=== PATIENT | male | born 1980 | race Caucasian/White ===

== ENCOUNTER 2017-08-14 05:54 | Emergency (ER) | payer SELFPAY ==
[~2017-08-14] VITALS: Ht 175.2 cm; Wt 81.6 kg
[~2017-08-14 05:54] MED LIST: 'carisoprodol350 MG PO; AMOXICILLIN500 MG PO; AMOXIL500 MG PO; ANTIBIOTIC O500 U/GM TP; ATIVAN0.5 MG PO; CIPRO500 MG PO; CIPROFLOXACIN500 MG PO; CLARITIN10 MG PO; FLAGYL500 MG PO; GABAPENTIN400 MG PO; MEDROL DOSEPAK4 MG PO; METRONIDAZOLE500 MG PO; NEURONTIN300 MG PO; NORCO 325 MG-51 TAB PO; OXYCODONE-ACETAMINOP; PERCOCET 325 MG1 TA7; PERCOCET 325 MG1 TAB PO; PREDNISONE20 MG PO; SOMA; TORADOL10 MG PO; VALIUM2 MG PO; VICODIN 5/500 505 MG PO; VICODIN ES 7501 TA1 PO; VICODIN HP 6601 TA1 PO; Vicodin 5/500 505 MG PO; ZOLOFT100 MG PO
[2017-08-14] MEDS ORDERED: NORCO 5-325 TA1 EACH PO (06:24)
[2017-08-14] MEDS ORDERED: CLINDAMYCIN HC300 MG PO (06:24)
== END 2017-08-14 06:53 | disposition home or self-care (01) ==
LOC: ED 05:54
DX: K04.01 Reversible pulpitis (principal); K02.9 Dental caries, unspecified

== ENCOUNTER 2017-11-30 20:16 | Emergency (ER) | payer OTHER ==
[~2017-11-30] VITALS: Ht 175.2 cm; Wt 81.6 kg
[~2017-11-30 20:16] MED LIST changes: +CLINDAMYCIN HC300 MG PO; +NORCO 5-325 TA1 EACH PO
== END 2017-11-30 20:53 | disposition home or self-care (01) ==
LOC: ED 20:16
DX: S01.511A Laceration without foreign body of lip, initial encounter (principal); F17.200 Nicotine dependence, unspecified, uncomplicated; Z79.899 Other long term (current) drug therapy; W45.8XXA Other foreign body or object entering through skin, initial encounter; Y93.89 Activity, other specified; Y92.89 Other specified places as the place of occurrence of the external cause; Y99.8 Other external cause status

== ENCOUNTER 2018-08-13 14:16 | Emergency (ER) | payer OTHER ==
[~2018-08-13] VITALS: Ht 175.2 cm; Wt 79.4 kg
[2018-08-13] MEDS ORDERED: ZITHROMAX250 MG PO (17:00)
[2018-08-13] MEDS ORDERED: DELTASONE20 M1 PO (17:00)
== END 2018-08-13 17:04 | disposition home or self-care (01) ==
LOC: ED 14:16
DX: J40 Bronchitis, not specified as acute or chronic (principal); F17.200 Nicotine dependence, unspecified, uncomplicated; Z79.899 Other long term (current) drug therapy

== ENCOUNTER 2018-11-17 07:47 | Emergency (ER) | payer OTHER ==
[~2018-11-17] VITALS: Ht 175.2 cm; Wt 79.4 kg
[~2018-11-17 07:47] MED LIST changes: +DELTASONE20 M1 PO; +ZITHROMAX250 MG PO
[2018-11-17 08:15] LABS: BASO # 0.1 10*3/uL (0.0-0.1); BASO % 0.6 % (0.0-1.0); EOS % 0.1 % (1.0-4.0); HEMATOCRIT 45.2 % (42.0-52.0); HEMOGLOBIN 16.5 g/dl (14.0-18.0); LYMPH # 0.5 10*3/uL (1.3-4.4); LYMPH % 5.3 % (27.0-41.0); MEAN CELL VOLUME 86.3 fl (80.0-94.0); MEAN CORPUSCULAR HGB 31.5 pg (27.0-31.0); MEAN CORPUSCULAR HGB CONC 36.5 g/dl (33.0-37.0); MEAN PLATELET VOLUME 9.1 fl (9.6-12.3); MONO # 0.9 10*3/uL (0.1-1.0); MONO % 9.5 % (3.0-9.0); NEUT # 7.9 10*3/uL (2.3-7.9); NEUT % 84.1 % (47.0-73.0); PLATELET COUNT AUTOMATED 235 10*3/uL (130-400); RED BLOOD COUNT 5.24 10*6/uL (4.50-5.90); RED CELL DISTRI WIDTH 12.1 % (0-14.5); WHITE BLOOD COUNT 9.4 10*3/uL (4.8-10.8)
[2018-11-17 08:39] LABS: ALBUMIN 4.1 gm/dl (3.1-4.5); ALKALINE PHOSPHATASE 77 U/L (45-117); BUN 13 mg/dl (7-24); CHLORIDE 105 mmol/L (98-107); CREATININE 0.81 mg/dL (0.70-1.30); POTASSIUM 3.7 mmol/L (3.5-5.1); SGOT/AST 18 IU/L (3-35); SGPT/ALT 23 U/L (12-78); SODIUM 135 mmol/L (136-145); TOTAL PROTEIN 7.9 gm/dL (6.4-8.2)
[2018-11-17] MEDS ORDERED: ZOFRAN4 MG PO (09:13)
[2018-11-17] MEDS ORDERED: IMODIUM A-D2 M2 PO (09:16)
[2018-11-17] MEDS ORDERED: TAMIFLU 75MG CA75 MG PO (09:16)
[2018-11-19] MEDS ORDERED: PREDNISONE50 MG PO (05:06)
[2018-11-19] MEDS ORDERED: TESSALON PERLE100 MG PO (05:06)
== END 2018-11-17 09:17 | disposition home or self-care (01) ==
LOC: ED 07:47
PROVIDERS: Student in an Organized Health Care Education/Training Program
DX: J10.1 Influenza due to other identified influenza virus with other respiratory manifestations (principal); F17.200 Nicotine dependence, unspecified, uncomplicated; K52.9 Noninfective gastroenteritis and colitis, unspecified; Z79.2 Long term (current) use of antibiotics; Z79.899 Other long term (current) drug therapy

== ENCOUNTER 2019-02-23 15:17 | Emergency (ER) | payer OTHER ==
[~2019-02-23] VITALS: Ht 175.2 cm; Wt 81.6 kg
[~2019-02-23 15:17] MED LIST changes: +IMODIUM A-D2 M2 PO; +PREDNISONE50 MG PO; +TAMIFLU 75MG CA75 MG PO; +TESSALON PERLE100 MG PO; +ZOFRAN4 MG PO
[2019-02-23 15:32] LABS: BASO % 0.5 % (0.0-1.0); EOS % 0.1 % (1.0-4.0); HEMATOCRIT 49.1 % (42.0-52.0); HEMOGLOBIN 17.3 g/dl (14.0-18.0); LYMPH # 1.3 10*3/uL (1.3-4.4); LYMPH % 14.3 % (27.0-41.0); MEAN CELL VOLUME 87.8 fl (80.0-94.0); MEAN CORPUSCULAR HGB 30.9 pg (27.0-31.0); MEAN CORPUSCULAR HGB CONC 35.2 g/dl (33.0-37.0); MEAN PLATELET VOLUME 9.3 fl (9.6-12.3); MONO # 0.4 10*3/uL (0.1-1.0); MONO % 4.2 % (3.0-9.0); NEUT # 7.1 10*3/uL (2.3-7.9); NEUT % 80.7 % (47.0-73.0); PLATELET COUNT AUTOMATED 318 10*3/uL (130-400); RED BLOOD COUNT 5.59 10*6/uL (4.50-5.90); RED CELL DISTRI WIDTH 12.2 % (0-14.5); WHITE BLOOD COUNT 8.8 10*3/uL (4.8-10.8)
[2019-02-23 15:48] LABS: ALBUMIN 4.6 gm/dl (3.1-4.5); ALKALINE PHOSPHATASE 85 U/L (45-117); BUN 8 mg/dl (7-24); CHLORIDE 109 mmol/L (98-107); CREATININE 0.86 mg/dL (0.70-1.30); LIPASE 50 U/L (73-393); SGOT/AST 12 IU/L (3-35); SGPT/ALT 23 U/L (12-78); SODIUM 141 mmol/L (136-145); TOTAL PROTEIN 8.3 gm/dL (6.4-8.2)
[2019-02-23 17:00] LABS: BILIRUBIN 1+ (NEGATIVE); BLOOD NEGATIVE (NEGATIVE); CLARITY CLEAR (CLEAR); COLOR YELLOW (YELLOW); GLUCOSE NEGATIVE (NEGATIVE); KETONE TRACE (NEGATIVE); LEUKO ESTERASE TRACE (NEGATIVE); NITRITE NEGATIVE (NEGATIVE)
[2019-02-23 17:06] LABS: BACTERIA 1+; EPITHELIAL CELLS 0-2; MUCOUS 2+
[2019-02-23 17:08] LABS: URINE AMPHETAMINES < 1000 (1000ng/ml); URINE BARBITURATES < 200 (200ng/ml); URINE BENZODIAZEPINES < 200 (200ng/ml); URINE CANNABINOIDS (THC) > 50 (50ng/ml); URINE COCAINE < 300 (300ng/ml); URINE METHADONE < 300 (300ng/ml); URINE OPIATES < 300 (300ng/ml)
[2019-02-23] MEDS ORDERED: ZOFRAN4 MG PO (17:12)
[2019-02-23 17:13] LABS: URINE PHENCYCLIDINE < 25 (25ng/ml)
== END 2019-02-23 17:25 | disposition home or self-care (01) ==
LOC: ED 15:17
PROVIDERS: Physician Assistant
DX: R11.2 Nausea with vomiting, unspecified (principal); R55 Syncope and collapse; R19.7 Diarrhea, unspecified; R10.84 Generalized abdominal pain; F17.200 Nicotine dependence, unspecified, uncomplicated; Z79.899 Other long term (current) drug therapy

== ENCOUNTER 2019-09-11 18:42 | Emergency (ER) | payer OTHER ==
[~2019-09-11] VITALS: Ht 175.2 cm; Wt 79.4 kg
[2019-09-11 19:18] LABS: BASO # 0.1 10*3/uL (0.0-0.1); BASO % 0.7 % (0.0-1.0); EOS # 0.1 10*3/uL (0.0-0.4); HEMATOCRIT 43.5 % (42.0-52.0); HEMOGLOBIN 15.2 g/dl (14.0-18.0); LYMPH # 1.8 10*3/uL (1.3-4.4); LYMPH % 21.1 % (27.0-41.0); MEAN CELL VOLUME 89.9 fl (80.0-94.0); MEAN CORPUSCULAR HGB 31.4 pg (27.0-31.0); MEAN CORPUSCULAR HGB CONC 34.9 g/dl (33.0-37.0); MEAN PLATELET VOLUME 9.2 fl (9.6-12.3); MONO # 0.9 10*3/uL (0.1-1.0); MONO % 10.3 % (3.0-9.0); NEUT # 5.6 10*3/uL (2.3-7.9); NEUT % 66.5 % (47.0-73.0); PLATELET COUNT AUTOMATED 308 10*3/uL (130-400); RED BLOOD COUNT 4.84 10*6/uL (4.50-5.90); RED CELL DISTRI WIDTH 11.9 % (0-14.5); WHITE BLOOD COUNT 8.4 10*3/uL (4.8-10.8)
[2019-09-11 19:29] LABS: ACT PARTIAL THROMBO TIME 28.8 SECONDS (20.0-32.1); INTERNATIONAL NORM RATIO 0.9 (2.0-3.5)
[2019-09-11 19:36] LABS: ALKALINE PHOSPHATASE 73 U/L (45-117); BUN 9 mg/dl (7-24); CHLORIDE 107 mmol/L (98-107); POTASSIUM 4.1 mmol/L (3.5-5.1); SGOT/AST 15 IU/L (3-35); SGPT/ALT 22 U/L (12-78); SODIUM 139 mmol/L (136-145); TOTAL PROTEIN 7.2 gm/dL (6.4-8.2)
[2019-09-11 19:37] LABS: TROPONIN I < 0.015 ng/ml (<0.045)
== END 2019-09-11 20:06 | disposition short-term general hospital (02) ==
LOC: ED 18:42
PROVIDERS: Emergency Medicine
DX: I21.3 ST elevation (STEMI) myocardial infarction of unspecified site (principal); F17.200 Nicotine dependence, unspecified, uncomplicated; Z79.899 Other long term (current) drug therapy

== ENCOUNTER 2020-02-10 17:52 | Emergency (ER) | payer OTHER ==
[~2020-02-10] VITALS: Ht 175.2 cm; Wt 74.8 kg
[2020-02-10] MEDS ORDERED: CLINDAMYCIN HC300 MG PO (18:18)
[2020-02-10] MEDS ORDERED: IBU600 M1 PO (18:18)
[2020-02-16] MEDS ORDERED: FLAGYL500 MG PO (14:42)
[2020-02-16] MEDS ORDERED: IBU800 M1 PO (14:42)
[2020-02-16] MEDS ORDERED: AMOXICILLIN500 M3 PO (14:42)
== END 2020-02-10 18:36 | disposition home or self-care (01) ==
LOC: ED 17:52
DX: K08.89 Other specified disorders of teeth and supporting structures (principal); F41.9 Anxiety disorder, unspecified; F17.200 Nicotine dependence, unspecified, uncomplicated; Z79.899 Other long term (current) drug therapy

== ENCOUNTER 2020-02-14 17:14 | Emergency (ER) | payer OTHER ==
[~2020-02-14] VITALS: Ht 175.2 cm; Wt 72.6 kg
[~2020-02-14 17:14] MED LIST changes: +IBU600 M1 PO
[2020-02-14] MEDS ORDERED: AUGMENTIN 875-875 MG PO (17:57)
[2020-02-15] MEDS ORDERED: GABAPENTIN800 MG PO (22:30)
[2020-02-16] MEDS ORDERED: FLAGYL500 MG PO (14:42)
[2020-02-16] MEDS ORDERED: AMOXICILLIN500 M3 PO (14:42)
[2020-02-16] MEDS ORDERED: IBU800 M1 PO (14:42)
== END 2020-02-14 18:03 | disposition home or self-care (01) ==
LOC: ED 17:14
DX: K04.7 Periapical abscess without sinus (principal); K08.89 Other specified disorders of teeth and supporting structures; F41.9 Anxiety disorder, unspecified; Z79.899 Other long term (current) drug therapy

== ENCOUNTER 2020-02-15 14:02 | Emergency (ER) | payer OTHER ==
[~2020-02-15] VITALS: Ht 175.2 cm; Wt 74.8 kg
[~2020-02-15 14:02] MED LIST changes: +AUGMENTIN 875-875 MG PO
[2020-02-15 15:09] LABS: BASO % 0.4 % (0.0-1.0); EOS # 0.1 10*3/uL (0.0-0.4); EOS % 0.5 % (1.0-4.0); HEMATOCRIT 41.4 % (42.0-52.0); LYMPH # 1.7 10*3/uL (1.3-4.4); LYMPH % 16.3 % (27.0-41.0); MEAN CELL VOLUME 88.1 fl (80.0-94.0); MEAN CORPUSCULAR HGB 31.1 pg (27.0-31.0); MEAN CORPUSCULAR HGB CONC 35.3 g/dl (33.0-37.0); MONO # 0.8 10*3/uL (0.1-1.0); MONO % 7.7 % (3.0-9.0); NEUT # 7.6 10*3/uL (2.3-7.9); NEUT % 74.6 % (47.0-73.0); PLATELET COUNT AUTOMATED 317 10*3/uL (130-400); WHITE BLOOD COUNT 10.2 10*3/uL (4.8-10.8)
[2020-02-15 15:41] LABS: ALBUMIN 3.8 gm/dl (3.1-4.5); ALKALINE PHOSPHATASE 71 U/L (45-117); BUN 12 mg/dl (7-24); CHLORIDE 104 mmol/L (98-107); CREATININE 0.59 mg/dL (0.70-1.30); POTASSIUM 3.8 mmol/L (3.5-5.1); SGOT/AST 8 IU/L (3-35); SGPT/ALT 18 U/L (12-78); SODIUM 137 mmol/L (136-145); TOTAL PROTEIN 7.7 gm/dL (6.4-8.2)
[2020-02-15] MEDS ORDERED: GABAPENTIN800 MG PO (22:30)
[2020-02-16] MEDS ORDERED: FLAGYL500 MG PO (14:42)
[2020-02-16] MEDS ORDERED: IBU800 M1 PO (14:42)
[2020-02-16] MEDS ORDERED: AMOXICILLIN500 M3 PO (14:42)
== END 2020-02-15 17:24 | disposition left against medical advice (07) ==
LOC: ED 14:02
PROVIDERS: Physician Assistant
DX: K08.89 Other specified disorders of teeth and supporting structures (principal); F41.9 Anxiety disorder, unspecified

== ENCOUNTER 2021-04-12 20:14 | Emergency (ER) | payer OTHER ==
[~2021-04-12] VITALS: Wt 69.9 kg
[~2021-04-12 20:14] MED LIST changes: +AMOXICILLIN500 M3 PO; +GABAPENTIN800 MG PO; +IBU800 M1 PO
== END 2021-04-12 22:50 | disposition home or self-care (01) ==
LOC: ED 20:14
DX: T63.441A Toxic effect of venom of bees, accidental (unintentional), initial encounter (principal); L53.0 Toxic erythema; F17.200 Nicotine dependence, unspecified, uncomplicated; Z79.2 Long term (current) use of antibiotics; Z79.899 Other long term (current) drug therapy; Z98.890 Other specified postprocedural states; Z98.61 Coronary angioplasty status; Y92.89 Other specified places as the place of occurrence of the external cause

== ENCOUNTER 2021-06-16 09:21 | Emergency (ER) | payer OTHER ==
[~2021-06-16] VITALS: Ht 175.2 cm; Wt 70.3 kg
== END 2021-06-16 13:33 | disposition left against medical advice (07) ==
LOC: ED 09:21
DX: S49.91XA Unspecified injury of right shoulder and upper arm, initial encounter (principal); F17.200 Nicotine dependence, unspecified, uncomplicated; Z79.2 Long term (current) use of antibiotics; Z79.899 Other long term (current) drug therapy; Z98.890 Other specified postprocedural states; X58.XXXA Exposure to other specified factors, initial encounter; Y93.89 Activity, other specified; Y92.89 Other specified places as the place of occurrence of the external cause; Y99.8 Other external cause status

== ENCOUNTER → 2021-10-07 | Outpatient (CLI) | payer OTHER ==
[2021-10-07 11:19] LABS: BASO # 0.1 10*3/uL (0.0-0.1); BASO % 0.7 % (0.0-1.0); EOS # 0.1 10*3/uL (0.0-0.4); EOS % 1.6 % (1.0-4.0); HEMATOCRIT 45.8 % (42.0-52.0); LYMPH # 2.3 10*3/uL (1.3-4.4); LYMPH % 26.1 % (27.0-41.0); MEAN CELL VOLUME 89.8 fl (80.0-94.0); MEAN CORPUSCULAR HGB 31.6 pg (27.0-31.0); MEAN CORPUSCULAR HGB CONC 35.2 g/dl (33.0-37.0); MEAN PLATELET VOLUME 8.6 fl (9.6-12.3); MONO # 0.8 10*3/uL (0.1-1.0); MONO % 8.7 % (3.0-9.0); NEUT # 5.4 10*3/uL (2.3-7.9); NEUT % 62.3 % (47.0-73.0); PLATELET COUNT AUTOMATED 308 10*3/uL (130-400); RETICULOCYTE % 1.26 % (0.50-2.50); WHITE BLOOD COUNT 8.7 10*3/uL (4.8-10.8)
[2021-10-07 11:37] LABS: ALBUMIN 3.9 gm/dl (3.1-4.5); ALKALINE PHOSPHATASE 69 U/L (45-117); BUN 10 mg/dl (7-24); CHLORIDE 105 mmol/L (98-107); CHOLESTEROL 166 mg/dL (<200); CREATININE 0.83 mg/dL (0.70-1.30); GAMMA GLUTAMYL TRANSPEPTIDASE 36 U/L (15-85); IRON 77 ug/dL (65-175); LDL CHOLESTEROL 90 mg/dL (9-159); POTASSIUM 4.3 mmol/L (3.5-5.1); SGOT/AST 12 IU/L (3-35); SGPT/ALT 20 U/L (12-78); SODIUM 136 mmol/L (136-145); TOTAL IRON BINDING CAPACITY 386 ug/dl (250-450); TOTAL PROTEIN 7.4 gm/dL (6.4-8.2); TRIGLYCERIDES 128 mg/dl (<150)
[2021-10-07 11:44] LABS: THYROID STIM HORMONE (HS) 0.256 uIU/ml (0.358-4.75)
[2021-10-07 13:11] LABS: VITAMIN D, 25-HYDROXY 19.7 ng/mL (30-100)
[2021-10-07 13:12] LABS: FERRITIN 82.5 ng/mL (22.0-322.0)
== END | disposition home or self-care (01) ==
LOC: LAB 10:59
PROVIDERS: ATTEND Family Medicine
DX: J98.11 Atelectasis (principal); R74.8 Abnormal levels of other serum enzymes; R53.83 Other fatigue; R79.89 Other specified abnormal findings of blood chemistry; E78.5 Hyperlipidemia, unspecified; E55.9 Vitamin D deficiency, unspecified

== ENCOUNTER 2021-11-12 10:03 | Emergency (ER) | payer OTHER ==
[~2021-11-12] VITALS: Ht 175.2 cm; Wt 71.7 kg
[2021-11-12] MEDS ORDERED: TYLENOL325 M1 PO (11:24)
[2021-11-12] MEDS ORDERED: NAPROXEN250 MG PO (11:24)
[2021-11-12] MEDS ORDERED: PENICILLIN-VK500 MG PO (11:24)
== END 2021-11-12 11:38 | disposition home or self-care (01) ==
LOC: ED 10:03
DX: K02.9 Dental caries, unspecified (principal); F17.200 Nicotine dependence, unspecified, uncomplicated

== ENCOUNTER 2021-12-17 10:51 | Emergency (ER) | payer OTHER ==
[~2021-12-17] VITALS: Ht 175.2 cm; Wt 68.0 kg
[2021-12-17 11:29] LABS: BASO # 0.1 10*3/uL (0.0-0.1); BASO % 0.8 % (0.0-1.0); EOS # 0.1 10*3/uL (0.0-0.4); EOS % 1.4 % (1.0-4.0); HEMATOCRIT 45.9 % (42.0-52.0); LYMPH # 1.8 10*3/uL (1.3-4.4); LYMPH % 25.3 % (27.0-41.0); MEAN CELL VOLUME 89.6 fl (80.0-94.0); MEAN CORPUSCULAR HGB 31.1 pg (27.0-31.0); MEAN CORPUSCULAR HGB CONC 34.6 g/dl (33.0-37.0); MEAN PLATELET VOLUME 8.6 fl (9.6-12.3); MONO # 0.5 10*3/uL (0.1-1.0); MONO % 6.7 % (3.0-9.0); NEUT # 4.7 10*3/uL (2.3-7.9); NEUT % 65.5 % (47.0-73.0); PLATELET COUNT AUTOMATED 261 10*3/uL (130-400); RED BLOOD COUNT 5.12 10*6/uL (4.50-5.90); RED CELL DISTRI WIDTH 12.2 % (0-14.5); WHITE BLOOD COUNT 7.2 10*3/uL (4.8-10.8)
[2021-12-17 11:41] LABS: ACT PARTIAL THROMBO TIME 30.1 SECONDS (20.0-32.1)
[2021-12-17 11:48] LABS: ALKALINE PHOSPHATASE 54 U/L (45-117); BUN 11 mg/dl (7-24); CHLORIDE 107 mmol/L (98-107); CREATININE 0.78 mg/dL (0.70-1.30); POTASSIUM 4.7 mmol/L (3.5-5.1); SGOT/AST 15 IU/L (3-35); SGPT/ALT 22 U/L (12-78); SODIUM 138 mmol/L (136-145); TOTAL PROTEIN 7.2 gm/dL (6.4-8.2)
== END 2021-12-17 14:05 | disposition home or self-care (01) ==
LOC: ED 10:51
PROVIDERS: Emergency Medicine
DX: R07.89 Other chest pain (principal); R05.9 Cough, unspecified; Z87.891 Personal history of nicotine dependence

== ENCOUNTER → 2021-12-17 | Outpatient (CLI) | payer OTHER ==
[~2021-12-17] MED LIST changes: +NAPROXEN250 MG PO; +PENICILLIN-VK500 MG PO; +TYLENOL325 M1 PO
[2021-12-17 10:51] LABS: BASO # 0.1 10*3/uL (0.0-0.1); BASO % 1.1 % (0.0-1.0); EOS # 0.1 10*3/uL (0.0-0.4); EOS % 1.1 % (1.0-4.0); HEMATOCRIT 44.7 % (42.0-52.0); MEAN CELL VOLUME 88.5 fl (80.0-94.0); MEAN CORPUSCULAR HGB 31.1 pg (27.0-31.0); MEAN CORPUSCULAR HGB CONC 35.1 g/dl (33.0-37.0); MEAN PLATELET VOLUME 8.7 fl (9.6-12.3); MONO # 0.5 10*3/uL (0.1-1.0); NEUT # 4.6 10*3/uL (2.3-7.9); NEUT % 63.3 % (47.0-73.0); PLATELET COUNT AUTOMATED 265 10*3/uL (130-400); RED BLOOD COUNT 5.05 10*6/uL (4.50-5.90); RED CELL DISTRI WIDTH 12.2 % (0-14.5); RETICULOCYTE % 1.08 % (0.50-2.50); WHITE BLOOD COUNT 7.3 10*3/uL (4.8-10.8)
[2021-12-17 11:10] LABS: BUN 12 mg/dl (7-24); CHLORIDE 108 mmol/L (98-107); CHOLESTEROL 168 mg/dL (<200); CREATININE 0.73 mg/dL (0.70-1.30); GAMMA GLUTAMYL TRANSPEPTIDASE 33 U/L (15-85); IRON 97 ug/dL (65-175); POTASSIUM 4.3 mmol/L (3.5-5.1); SGOT/AST 12 IU/L (3-35); SGPT/ALT 18 U/L (12-78); SODIUM 139 mmol/L (136-145); TOTAL PROTEIN 7.2 gm/dL (6.4-8.2); TRIGLYCERIDES 45 mg/dl (<150)
[2021-12-17 11:19] LABS: ALKALINE PHOSPHATASE 55 U/L (45-117); LDL CHOLESTEROL 113 mg/dL (9-159); T3 UPTAKE 34 % (31-39); THYROID STIM HORMONE (HS) 0.227 uIU/ml (0.358-4.75); TOTAL IRON BINDING CAPACITY 384 ug/dl (250-450)
== END | disposition home or self-care (01) ==
LOC: LAB 10:27
PROVIDERS: ATTEND Family Medicine
DX: R79.89 Other specified abnormal findings of blood chemistry (principal); R53.83 Other fatigue

== ENCOUNTER 2022-01-12 21:18 | Emergency (ER) | payer OTHER ==
[~2022-01-12] VITALS: Ht 175.2 cm; Wt 68.0 kg
[2022-01-12] MEDS ORDERED: OMNICEF300 MG PO (21:25)
[2022-01-12] MEDS ORDERED: PENICILLIN VK500 MG PO (21:36)
== END 2022-01-12 21:40 | disposition home or self-care (01) ==
LOC: ED 21:18
DX: K02.9 Dental caries, unspecified (principal); Z87.891 Personal history of nicotine dependence

== ENCOUNTER 2022-03-17 19:39 | Emergency (ER) | payer OTHER ==
[~2022-03-17] VITALS: Ht 175.2 cm; Wt 70.3 kg
[~2022-03-17 19:39] MED LIST changes: +OMNICEF300 MG PO; +PENICILLIN VK500 MG PO
[2022-03-17] MEDS ORDERED: GABAPENTIN400 MG PO (20:14)
== END 2022-03-17 21:00 | disposition home or self-care (01) ==
LOC: ED 19:39
DX: S61.210A Laceration without foreign body of right index finger without damage to nail, initial encounter (principal); W22.8XXA Striking against or struck by other objects, initial encounter; Y93.89 Activity, other specified; Y92.89 Other specified places as the place of occurrence of the external cause; Y99.8 Other external cause status

== ENCOUNTER → 2022-06-02 | Outpatient (CLI) | payer OTHER ==
[2022-06-02 09:04] LABS: BASO # 0.1 10*3/uL (0.0-0.1); BASO % 0.7 % (0.0-1.0); EOS # 0.1 10*3/uL (0.0-0.4); EOS % 1.3 % (1.0-4.0); HEMATOCRIT 46.2 % (42.0-52.0); LYMPH # 1.6 10*3/uL (1.3-4.4); MEAN CELL VOLUME 90.4 fl (80.0-94.0); MEAN CORPUSCULAR HGB 31.9 pg (27.0-31.0); MEAN CORPUSCULAR HGB CONC 35.3 g/dl (33.0-37.0); MEAN PLATELET VOLUME 8.9 fl (9.6-12.3); MONO # 0.5 10*3/uL (0.1-1.0); MONO % 5.4 % (3.0-9.0); NEUT # 7.6 10*3/uL (2.3-7.9); NEUT % 76.1 % (47.0-73.0); PLATELET COUNT AUTOMATED 267 10*3/uL (130-400); RED BLOOD COUNT 5.11 10*6/uL (4.50-5.90); RED CELL DISTRI WIDTH 12.1 % (0-14.5); RETICULOCYTE % 1.13 % (0.50-2.50)
[2022-06-02 09:05] LABS: BILIRUBIN Negative (Negative); BLOOD Negative (Negative); CLARITY Clear (Clear); COLOR Yellow (Yellow); GLUCOSE Negative (Negative); KETONE Negative (Negative); LEUKO ESTERASE Negative (Negative); NITRITE Negative (Negative); PH 6.5 (4.5-8.0); SPECIFIC GRAVITY <= 1.005 (1.001-1.030); UROBILINOGEN 0.2 E.U./dl (0.0-1.0)
[2022-06-02 09:14] LABS: RBC 0-2 rbc/hpf (0-2); WBC 0-2 wbc/hpf (0-5)
[2022-06-02 09:25] LABS: BUN 10 mg/dl (7-24); CHLORIDE 109 mmol/L (98-107); CHOLESTEROL 157 mg/dL (<200); GAMMA GLUTAMYL TRANSPEPTIDASE 36 U/L (15-85); IRON 80 ug/dL (65-175); POTASSIUM 4.3 mmol/L (3.5-5.1); SGOT/AST 14 IU/L (3-35); SGPT/ALT 23 U/L (12-78); SODIUM 139 mmol/L (136-145); TRIGLYCERIDES 101 mg/dl (<150)
[2022-06-02 09:26] LABS: ALKALINE PHOSPHATASE 61 U/L (45-117); TOTAL PROTEIN 7.5 gm/dL (6.4-8.2)
[2022-06-02 09:34] LABS: LDL CHOLESTEROL 91 mg/dL (9-159); THYROID STIM HORMONE (HS) 0.227 uIU/ml (0.358-4.75)
[2022-06-02 10:14] LABS: FERRITIN 55.6 ng/mL (22.0-322.0); VITAMIN D, 25-HYDROXY 31.1 ng/mL (30-100)
[2022-06-03 05:06] LABS: HBSAG Negative (Negative); HEP B CORE AB, IGM Negative (Negative); HEPATITIS C ANTIBODY <0.1 (0.0-0.9)
== END | disposition home or self-care (01) ==
LOC: LAB 08:38
PROVIDERS: ATTEND Family Medicine
DX: E78.5 Hyperlipidemia, unspecified (principal); E55.9 Vitamin D deficiency, unspecified; R79.89 Other specified abnormal findings of blood chemistry; R53.83 Other fatigue; R74.8 Abnormal levels of other serum enzymes

== ENCOUNTER → 2022-11-28 | Outpatient (CLI) | payer OTHER | LOC: RAD 16:15 | PROVIDERS: ATTEND Family Medicine | DX: R06.02 Shortness of breath (principal) ==

== ENCOUNTER → 2022-12-01 | Outpatient (CLI) | payer OTHER ==
[2022-12-01 16:41] LABS: BASO % 0.4 % (0.0-1.0); EOS % 0.1 % (1.0-4.0); HEMATOCRIT 43.5 % (42.0-52.0); LYMPH # 1.1 10*3/uL (1.3-4.4); LYMPH % 12.3 % (27.0-41.0); MEAN CELL VOLUME 91.2 fl (80.0-94.0); MEAN CORPUSCULAR HGB 31.4 pg (27.0-31.0); MEAN CORPUSCULAR HGB CONC 34.5 g/dl (33.0-37.0); MEAN PLATELET VOLUME 8.8 fl (9.6-12.3); MONO # 0.3 10*3/uL (0.1-1.0); MONO % 3.2 % (3.0-9.0); NEUT # 7.6 10*3/uL (2.3-7.9); NEUT % 83.5 % (47.0-73.0); PLATELET COUNT AUTOMATED 267 10*3/uL (130-400); RED BLOOD COUNT 4.77 10*6/uL (4.50-5.90); RED CELL DISTRI WIDTH 12.7 % (0-14.5); RETICULOCYTE % 1.52 % (0.50-2.50); WHITE BLOOD COUNT 9.1 10*3/uL (4.8-10.8)
[2022-12-01 17:00] LABS: ALKALINE PHOSPHATASE 50 U/L (46-116); BUN 13 mg/dl (9-23); CHLORIDE 108 mmol/L (98-107); CHOLESTEROL 157 mg/dL (<200); GAMMA GLUTAMYL TRANSPEPTIDASE 33 U/L (0-73); LDL CHOLESTEROL 78 mg/dL (9-159); POTASSIUM 4.4 mmol/L (3.4-5.1); SGPT/ALT 16 U/L (10-49); THYROID STIM HORMONE (HS) 0.274 uIU/ml (0.550-4.780); THYROXINE (T4) TOTAL 8.3 ug/dl (4.5-10.9); TOTAL PROTEIN 6.9 gm/dL (6.0-8.0); TRIGLYCERIDES 71 mg/dl (<150); URIC ACID 4.3 mg/dL (3.7-9.2)
[2022-12-01 17:27] LABS: VITAMIN D, 25-HYDROXY 36.2 ng/mL (30-100)
[2022-12-02 16:08] LABS: ANTI-DSDNA ANTIBODIES 1 IU/mL (0-9)
== END | disposition home or self-care (01) ==
LOC: LAB 16:16
PROVIDERS: ATTEND Family Medicine
DX: R79.89 Other specified abnormal findings of blood chemistry (principal); R53.83 Other fatigue; E78.5 Hyperlipidemia, unspecified; E55.9 Vitamin D deficiency, unspecified

== ENCOUNTER → 2023-05-13 | Outpatient (CLI) | payer OTHER | END | disposition home or self-care (01) | LOC: CT 05-12 15:00 | PROVIDERS: ATTEND Family Medicine | DX: S06.0X0D Concussion without loss of consciousness, subsequent encounter (principal); R51.9 Headache, unspecified; J34.89 Other specified disorders of nose and nasal sinuses; X58.XXXD Exposure to other specified factors, subsequent encounter ==

== ENCOUNTER 2023-10-31 09:08 | Emergency (ER) | payer OTHER ==
[~2023-10-31] VITALS: Ht 175.2 cm; Wt 72.6 kg
[2023-10-31] MEDS ORDERED: IBUPROFEN 800 MG TAB PO ONE (09:40)
[2023-10-31] MEDS ORDERED: Acetaminophen/Hydrocodone 5 MG/325 MG TABLET PO ONE (09:40)
[2023-10-31] MEDS ORDERED: Clindamycin Hydrochloride 150 MG CAP PO ONE (09:40)
[2023-10-31] MEDS ORDERED: CLEOCIN HCL150 MG PO (09:41)
[2023-10-31] MEDS ORDERED: Motrin,Rufen800 MG PO (09:41)
== END 2023-10-31 09:42 | disposition home or self-care (01) ==
LOC: ED 09:08
DX: K08.89 Other specified disorders of teeth and supporting structures (principal); F41.9 Anxiety disorder, unspecified; F12.90 Cannabis use, unspecified, uncomplicated; F17.200 Nicotine dependence, unspecified, uncomplicated; Z95.5 Presence of coronary angioplasty implant and graft; Z98.890 Other specified postprocedural states

== ENCOUNTER 2023-11-01 00:03 | Emergency (ER) | payer OTHER ==
[~2023-11-01] VITALS: Ht 175.2 cm; Wt 72.6 kg
[~2023-11-01 00:03] MED LIST changes: +CLEOCIN HCL150 MG PO; +Motrin,Rufen800 MG PO
== END 2023-11-01 01:06 | disposition left against medical advice (07) ==
LOC: ED 00:03
DX: K08.89 Other specified disorders of teeth and supporting structures (principal); Z53.21 Procedure and treatment not carried out due to patient leaving prior to being seen by health care provider

== ENCOUNTER → 2023-11-02 | Outpatient (CLI) | payer OTHER ==
[2023-11-02 14:09] LABS: BASO # 0.1 10*3/uL (0.0-0.1); BASO % 0.4 % (0.0-1.0); BILIRUBIN Negative (Negative); BLOOD Negative (Negative); CLARITY Clear (Clear); COLOR Dark Yellow (Yellow); EOS % 0.3 % (1.0-4.0); GLUCOSE Negative (Negative); HEMATOCRIT 44.2 % (42.0-52.0); KETONE 1+ (Negative); LEUKO ESTERASE Trace (Negative); LYMPH # 1.5 10*3/uL (1.3-4.4); LYMPH % 12.7 % (27.0-41.0); MEAN CELL VOLUME 89.8 fl (80.0-94.0); MEAN CORPUSCULAR HGB 31.3 pg (27.0-31.0); MEAN CORPUSCULAR HGB CONC 34.8 g/dl (33.0-37.0); MEAN PLATELET VOLUME 8.6 fl (9.6-12.3); MONO # 1.1 10*3/uL (0.1-1.0); MONO % 9.5 % (3.0-9.0); NEUT # 8.8 10*3/uL (2.3-7.9); NEUT % 76.8 % (47.0-73.0); NITRITE Negative (Negative); PLATELET COUNT AUTOMATED 244 10*3/uL (130-400); RED BLOOD COUNT 4.92 10*6/uL (4.50-5.90); RED CELL DISTRI WIDTH 12.2 % (0-14.5); RETICULOCYTE % 0.86 % (0.50-2.50); SPECIFIC GRAVITY >= 1.030 (1.001-1.030); WHITE BLOOD COUNT 11.5 10*3/uL (4.8-10.8)
[2023-11-02 14:19] LABS: BACTERIA 1+; RBC 0-2 rbc/hpf (0-2)
[2023-11-02 14:36] LABS: ALKALINE PHOSPHATASE 61 U/L (46-116); BUN 15 mg/dl (9-23); CHLORIDE 104 mmol/L (98-107); CHOLESTEROL 165 mg/dL (<200); GAMMA GLUTAMYL TRANSPEPTIDASE 67 U/L (0-73); LDL CHOLESTEROL 98 mg/dL (9-159); POTASSIUM 3.3 mmol/L (3.4-5.1); SGPT/ALT 22 U/L (5-49); T3 UPTAKE 30.9 % (22.4-36.7); THYROXINE (T4) TOTAL 10.1 ug/dl (4.5-10.9); TOTAL PROTEIN 7.3 gm/dL (6.0-8.0); TRIGLYCERIDES 77 mg/dl (<150)
[2023-11-02 14:37] LABS: VITAMIN D, 25-HYDROXY 21.4 ng/mL (30-100)
== END | disposition home or self-care (01) ==
LOC: LAB 13:44
PROVIDERS: ATTEND Family Medicine
DX: E78.5 Hyperlipidemia, unspecified (principal); E55.9 Vitamin D deficiency, unspecified; R79.89 Other specified abnormal findings of blood chemistry; R74.8 Abnormal levels of other serum enzymes; R53.83 Other fatigue

== ENCOUNTER 2024-01-04 02:33 | Emergency (ER) | payer OTHER ==
[~2024-01-04] VITALS: Ht 175.2 cm; Wt 65.8 kg
== END 2024-01-04 03:09 | disposition home or self-care (01) ==
LOC: ED 02:33
DX: K08.409 Partial loss of teeth, unspecified cause, unspecified class (principal); F41.9 Anxiety disorder, unspecified; Z95.5 Presence of coronary angioplasty implant and graft; Z98.890 Other specified postprocedural states; F12.90 Cannabis use, unspecified, uncomplicated; F17.200 Nicotine dependence, unspecified, uncomplicated

== ENCOUNTER 2024-01-08 02:59 | Emergency (ER) | payer OTHER ==
[~2024-01-08] VITALS: Ht 175.2 cm; Wt 65.8 kg
[2024-01-08] MEDS ORDERED: HYDROCODONE-AC1 EAC2 PO (03:15)
[2024-01-08 04:36] LABS: BUN 8 mg/dl (9-23); CHLORIDE 105 mmol/L (98-107); POTASSIUM 4.1 mmol/L (3.4-5.1)
[2024-01-08] MEDS ORDERED: IOHEXOL 300 MG/ML 100 ML VIAL IV ONE (04:45)
[2024-01-08] MEDS ORDERED: CLINDAMYCIN HC300 MG PO (05:13)
[2024-01-08] MEDS ORDERED: CLINDAMYCIN HCL 300 MG CAPSULE PO ONE (05:15)
[2024-01-08 05:54] LABS: BASO # 0.1 10*3/uL (0.0-0.1); BASO % 0.4 % (0.0-1.0); EOS # 0.1 10*3/uL (0.0-0.4); EOS % 0.5 % (1.0-4.0); HEMATOCRIT 43.1 % (42.0-52.0); LYMPH # 1.5 10*3/uL (1.3-4.4); LYMPH % 12.7 % (27.0-41.0); MEAN CELL VOLUME 91.7 fl (80.0-94.0); MEAN CORPUSCULAR HGB 31.3 pg (27.0-31.0); MEAN CORPUSCULAR HGB CONC 34.1 g/dl (33.0-37.0); MEAN PLATELET VOLUME 9.2 fl (9.6-12.3); MONO # 1.1 10*3/uL (0.1-1.0); MONO % 9.7 % (3.0-9.0); NEUT # 8.8 10*3/uL (2.3-7.9); NEUT % 75.1 % (47.0-73.0); PLATELET COUNT AUTOMATED 297 10*3/uL (130-400); WHITE BLOOD COUNT 11.7 10*3/uL (4.8-10.8)
[2024-01-09] MEDS ORDERED: CLARITHROMYCIN500 MG PO (09:37)
[2024-01-09] MEDS ORDERED: MELOXICAM15 MG PO (09:54)
== END 2024-01-08 05:12 | disposition left against medical advice (07) ==
LOC: ED 02:59
PROVIDERS: Student in an Organized Health Care Education/Training Program
DX: R22.0 Localized swelling, mass and lump, head (principal); K08.409 Partial loss of teeth, unspecified cause, unspecified class; R51.9 Headache, unspecified; E78.00 Pure hypercholesterolemia, unspecified; F41.9 Anxiety disorder, unspecified; E83.41 Hypermagnesemia; Z95.5 Presence of coronary angioplasty implant and graft; Z98.890 Other specified postprocedural states; F12.90 Cannabis use, unspecified, uncomplicated; F17.200 Nicotine dependence, unspecified, uncomplicated

== ENCOUNTER 2024-01-09 09:23 | Emergency (ER) | payer OTHER ==
[~2024-01-09] VITALS: Ht 175.2 cm; Wt 63.5 kg
[~2024-01-09 09:23] MED LIST changes: +HYDROCODONE-AC1 EAC2 PO
[2024-01-09] MEDS ORDERED: CLARITHROMYCIN500 MG PO (09:37)
[2024-01-09] MEDS ORDERED: Ketorolac Tromethamine 60 MG/2 ML VIAL IM ONE (09:50)
[2024-01-09] MEDS ORDERED: Dexamethasone Sodium Phospha 20 MG/5 ML VIAL IM ONE (09:50)
[2024-01-09] MEDS ORDERED: MELOXICAM15 MG PO (09:54)
== END 2024-01-09 10:16 | disposition home or self-care (01) ==
LOC: ED 09:23
DX: K04.7 Periapical abscess without sinus (principal); K02.9 Dental caries, unspecified; F41.9 Anxiety disorder, unspecified; Z95.5 Presence of coronary angioplasty implant and graft; Z98.890 Other specified postprocedural states; F17.200 Nicotine dependence, unspecified, uncomplicated; F12.90 Cannabis use, unspecified, uncomplicated

== ENCOUNTER 2024-01-11 10:15 | Inpatient (IN) | payer OTHER ==
[~2024-01-11] VITALS: Ht 175.3 cm; Wt 66.2 kg
[~2024-01-11 10:15] MED LIST changes: -AMOX-CLAV 875-1 EACH PO; -VENT7GM INH
[2024-01-11 11:02] VITALS: BP 125/88
[2024-01-11] MEDS ORDERED: Vancomycin Hydrochloride 250 ML IV ONE (11:05)
[2024-01-11] MEDS ORDERED: Piperacillin Sodium/Tazobact 50 ML IV ONE (11:10)
[2024-01-11] MEDS ORDERED: MORPHINE Sulfate 2 MG/ML SYR IV ONE (11:20)
[2024-01-11 11:23] LABS: BASO % 0.3 % (0.0-1.0); EOS # 0.1 10*3/uL (0.0-0.4); EOS % 0.4 % (1.0-4.0); HEMATOCRIT 41.2 % (42.0-52.0); LYMPH # 1.6 10*3/uL (1.3-4.4); MEAN CELL VOLUME 90.5 fl (80.0-94.0); MEAN CORPUSCULAR HGB 31.4 pg (27.0-31.0); MEAN CORPUSCULAR HGB CONC 34.7 g/dl (33.0-37.0); MEAN PLATELET VOLUME 8.5 fl (9.6-12.3); MONO % 7.5 % (3.0-9.0); NEUT # 10.4 10*3/uL (2.3-7.9); NEUT % 79.3 % (47.0-73.0); PLATELET COUNT AUTOMATED 355 10*3/uL (130-400); RED BLOOD COUNT 4.55 10*6/uL (4.50-5.90); RED CELL DISTRI WIDTH 12.2 % (0-14.5); WHITE BLOOD COUNT 13.1 10*3/uL (4.8-10.8)
[2024-01-11] MEDS ORDERED: VENT7GM INH (11:41)
[2024-01-11 11:50] LABS: BUN 10 mg/dl (9-23); CHLORIDE 102 mmol/L (98-107)
[2024-01-11] MEDS ORDERED: IOHEXOL 300 MG/ML 100 ML VIAL IV ONE (12:25)
[2024-01-11] MEDS ORDERED: Magnesium Hydroxide 30 ML UDC PO PRN (14:50)
[2024-01-11] MEDS ORDERED: ACETAMINOPHEN 650 MG SUPP R PRN (14:50)
[2024-01-11] MEDS ORDERED: BISACODYL 5 MG TAB PO PRN (14:50)
[2024-01-11] MEDS ORDERED: Acetaminophen/Hydrocodone 5 MG/325 MG TABLET PO PRN (14:50)
[2024-01-11] MEDS ORDERED: ACETAMINOPHEN 325 MG TAB PO PRN (14:50)
[2024-01-11] MEDS ORDERED: MORPHINE Sulfate 2 MG/ML SYR IV PRN (14:50)
[2024-01-11] MEDS ORDERED: BISACODYL 10 MG SUPP R PRN (14:50)
[2024-01-11 14:54] VITALS: BP 113/82
[2024-01-11 15:00] VITALS: BP 123/87
[2024-01-11 16:00] VITALS: BP 139/96
[2024-01-11] MEDS ORDERED: HYDROmorphONE Hydrochloride 1 MG/ML SYR IV ONE (16:40)
[2024-01-11] MEDS ORDERED: Ampicillin Sodium/Sulbactam 3 GM in SODIUM CHLORIDE 0.9% 100 ML IV SCH ×2 (18:05→20:00)
[2024-01-11 20:00] VITALS: BP 154/95
[2024-01-11] MEDS ORDERED: HYDROmorphONE Hydrochloride 1 MG/ML SYR IV PRN (21:00)
[2024-01-11] MEDS ORDERED: GABAPENTIN 800 MG TAB PO SCH (22:00)
[2024-01-11] MEDS ORDERED: Ketorolac Tromethamine 15 MG/ML VIAL IV PRN (22:10)
[2024-01-12] VITALS: BP 125/77
[2024-01-12 06:59] LABS: BASO # 0.1 10*3/uL (0.0-0.1); BASO % 0.7 % (0.0-1.0); EOS # 0.1 10*3/uL (0.0-0.4); EOS % 1.2 % (1.0-4.0); HEMATOCRIT 40.6 % (42.0-52.0); LYMPH % 24.2 % (27.0-41.0); MEAN CELL VOLUME 92.1 fl (80.0-94.0); MEAN CORPUSCULAR HGB 30.8 pg (27.0-31.0); MEAN CORPUSCULAR HGB CONC 33.5 g/dl (33.0-37.0); MEAN PLATELET VOLUME 8.6 fl (9.6-12.3); MONO # 0.7 10*3/uL (0.1-1.0); MONO % 8.5 % (3.0-9.0); NEUT # 5.4 10*3/uL (2.3-7.9); NEUT % 64.9 % (47.0-73.0); PLATELET COUNT AUTOMATED 350 10*3/uL (130-400); RED BLOOD COUNT 4.41 10*6/uL (4.50-5.90); RED CELL DISTRI WIDTH 11.9 % (0-14.5); WHITE BLOOD COUNT 8.3 10*3/uL (4.8-10.8)
[2024-01-12 07:16] LABS: BUN 8 mg/dl (9-23); CHLORIDE 101 mmol/L (98-107); POTASSIUM 4.1 mmol/L (3.4-5.1)
[2024-01-12 08:00] VITALS: BP 126/83
[2024-01-12] MEDS ORDERED: Enoxaparin Sodium 40 MG/0.4 ML SYR SC SCH (10:00)
[2024-01-12 12:00] VITALS: BP 131/73
[2024-01-12 16:00] VITALS: BP 105/72
[2024-01-12 20:00] VITALS: BP 125/67
[2024-01-13] VITALS: BP 132/56
[2024-01-13 06:10] LABS: CHLORIDE 104 mmol/L (98-107); POTASSIUM 4.4 mmol/L (3.4-5.1)
[2024-01-13 06:11] LABS: BUN < 5 mg/dl (9-23)
[2024-01-13 06:30] LABS: BASO # 0.1 10*3/uL (0.0-0.1); EOS # 0.3 10*3/uL (0.0-0.4); EOS % 4.3 % (1.0-4.0); HEMATOCRIT 37.2 % (42.0-52.0); LYMPH # 2.3 10*3/uL (1.3-4.4); MEAN CORPUSCULAR HGB 30.8 pg (27.0-31.0); MEAN CORPUSCULAR HGB CONC 33.9 g/dl (33.0-37.0); MEAN PLATELET VOLUME 8.5 fl (9.6-12.3); MONO # 0.7 10*3/uL (0.1-1.0); MONO % 12.4 % (3.0-9.0); NEUT # 2.5 10*3/uL (2.3-7.9); NEUT % 42.3 % (47.0-73.0); PLATELET COUNT AUTOMATED 330 10*3/uL (130-400); RED BLOOD COUNT 4.09 10*6/uL (4.50-5.90); RED CELL DISTRI WIDTH 11.6 % (0-14.5); WHITE BLOOD COUNT 5.8 10*3/uL (4.8-10.8)
[2024-01-13 08:00] VITALS: BP 132/61
[2024-01-13] MEDS ORDERED: Motrin,Rufen800 MG PO (11:15)
[2024-01-13] MEDS ORDERED: AMOX-CLAV 875-1 EACH PO (11:15)
== END 2024-01-13 13:03 | disposition home or self-care (01) | DRG 720 ==
LOC: ED 10:15 → EDHOLD 14:09 → 4E 14:09
PROVIDERS: Internal Medicine; Student in an Organized Health Care Education/Training Program; ADMIT Student in an Organized Health Care Education/Training Program; ATTEND Student in an Organized Health Care Education/Training Program
DX: A41.9 Sepsis, unspecified organism (principal); E87.1 Hypo-osmolality and hyponatremia; K04.7 Periapical abscess without sinus; K08.89 Other specified disorders of teeth and supporting structures; F17.219 Nicotine dependence, cigarettes, with unspecified nicotine-induced disorders; M47.9 Spondylosis, unspecified; F43.10 Post-traumatic stress disorder, unspecified; Z71.6 Tobacco abuse counseling; I25.2 Old myocardial infarction; Z82.0 Family history of epilepsy and other diseases of the nervous system; Z79.1 Long term (current) use of non-steroidal anti-inflammatories (NSAID); Z79.51 Long term (current) use of inhaled steroids; Z79.899 Other long term (current) drug therapy

== ENCOUNTER → 2024-01-11 | Emergency (ER) | payer OTHER ==
[~2024-01-11] VITALS: Ht 175.2 cm; Wt 61.2 kg
[~2024-01-11] MED LIST changes: +AMOX-CLAV 875-1 EACH PO; +CLARITHROMYCIN500 MG PO; +MELOXICAM15 MG PO; +VENT7GM INH
== END ==
LOC: ED 07:27
DX: K04.7 Periapical abscess without sinus (principal); F41.9 Anxiety disorder, unspecified; Z95.5 Presence of coronary angioplasty implant and graft; Z98.890 Other specified postprocedural states; F12.90 Cannabis use, unspecified, uncomplicated; F17.200 Nicotine dependence, unspecified, uncomplicated

== ENCOUNTER → 2024-07-05 | Outpatient (CLI) | payer OTHER ==
[~2024-07-05] MED LIST changes: +AMOX-CLAV 875-1 EACH PO; +VENT7GM INH
== END | disposition home or self-care (01) ==
LOC: RAD 08:17
PROVIDERS: ATTEND Family Medicine
DX: M50.30 Other cervical disc degeneration, unspecified cervical region (principal); M54.50 Low back pain, unspecified

== ENCOUNTER → 2025-06-02 | Outpatient (CLI) | payer OTHER ==
[2025-06-02 14:46] LABS: BASO # 0.1 10*3/uL (0.0-0.1); BASO % 0.7 % (0.0-1.0); BILIRUBIN Negative (Negative); BLOOD Negative (Negative); CLARITY Clear (Clear); COLOR Yellow (Yellow); EOS # 0.1 10*3/uL (0.0-0.4); EOS % 0.8 % (1.0-4.0); KETONE Trace (Negative); LEUKO ESTERASE Negative (Negative); MEAN CELL VOLUME 91.6 fl (80.0-94.0); MEAN CORPUSCULAR HGB 31.5 pg (27.0-31.0); MEAN PLATELET VOLUME 8.7 fl (9.6-12.3); MONO # 0.5 10*3/uL (0.1-1.0); MONO % 6.5 % (3.0-9.0); NEUT # 4.5 10*3/uL (2.3-7.9); NEUT % 63.8 % (47.0-73.0); NITRITE Negative (Negative); NUCLEATED RED BLOOD CELL 0.0 % (0.0-0.0); NUCLEATED RED BLOOD CELL 0.0 10*3/uL (0.0-0.0); PH 6.5 (4.5-8.0); PLATELET COUNT AUTOMATED 258 10*3/uL (130-400); RED CELL DISTRI WIDTH 12.4 % (0-14.5); RETICULOCYTE % 1.14 % (0.50-2.50); SPECIFIC GRAVITY 1.020 (1.001-1.030); UROBILINOGEN 1.0 E.U./dl (0.0-1.0)
[2025-06-02 15:08] LABS: MUCOUS 1+
[2025-06-02 15:43] LABS: VITAMIN D, 25-HYDROXY 39.0 ng/mL (30-100)
[2025-06-02 15:44] LABS: BUN 10 mg/dl (9-23); GAMMA GLUTAMYL TRANSFERASE 23 U/L (0-73); LDL CHOLESTEROL 102 mg/dL (9-159); SGPT/ALT 13 U/L (5-49); T3 UPTAKE 31.8 % (22.4-36.7); THYROXINE (T4) TOTAL 8.1 ug/dl (4.5-10.9)
== END ==
LOC: LAB 14:06
PROVIDERS: ATTEND Family Medicine
DX: R79.89 Other specified abnormal findings of blood chemistry (principal); R53.83 Other fatigue; E78.5 Hyperlipidemia, unspecified; E55.9 Vitamin D deficiency, unspecified